=== PATIENT | female | born 1960 | race Caucasian/White ===

== ENCOUNTER 2020-07-13 13:27 | Emergency (ER) | payer BC ==
[~2020-07-13] VITALS: Ht 162.6 cm; Wt 70.3 kg
[2020-07-13] MEDS ORDERED: KETOROLAC TROMETHAMINE 60 MG/2 ML VIAL IM NR (13:45)
--- NOTE | 2020-07-13 14:20 | Diagnostic Imaging Report ---
Exam: SHOULDER LEFT COMPLETE, HUMERUS LEFT 2+VIEWS - 2 views Left humerus radiographs-3 views History: Arm pain, fall Comparison: None. Findings: Acute comminuted fracture of the proximal left humeral metaphysis with involvement of the greater tuberosity. No malalignment of the left shoulder or left elbow. 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 Regional soft tissue swelling adjacent to fracture. Impression: 1. Acute comminuted fracture of the proximal left humeral metaphysis with involvement of the greater tuberosity. Signed by: Dr. Jay Weinstein M.D. on 07/13/2020 2:17 PM
--- NOTE | 2020-07-13 14:29 | Emergency Department Note ---
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 NO HEAD TRAUMA, NO LOC Historian: Patient Operations Section Manager Required: No Onset (how long ago): minute(s) Location: LEFT MID HUMERUS Quality: PAIN Radiation: Reports non-radiation Severity: moderate Onset quality: sudden Timing of current episode: constant Progression: unchanged Chronicity: new Context: Reports trauma/injury; Denies recent illness Relieving factors: none Exacerbating factors: none Associated symptoms: Reports denies other symptoms Past Medical/Family History Physician Review I have reviewed the patient's past medical and family history. Any updates have been documented here. 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 Other Any Pre-Existing Lines (PICC,: No Review of Systems Review of Systems Constitutional: Reports no symptoms EENTM: Reports no symptoms Cardiovascular: Reports no symptoms Respiratory: Reports no symptoms Gastrointestinal: Reports no symptoms Genitourinary: Reports no symptoms Musculoskeletal: Reports as per HPI Integumentary: Reports no symptoms Neurological: Reports no symptoms Psychological: Reports no symptoms Endocrine: Reports no symptoms Hematological/Lymphatic: Reports no symptoms Physical Exam Related Data Allergies: Coded Allergies: No Known Allergies (Unverified , 07/13/20) Triage Vital Signs Vital Signs Date Time Temp Pulse Resp B/P (MAP) Pulse Ox O2 Delivery O2 Flow Rate FiO2 07/13/20 13:33 98.2 66 18 137/75 100 Room Air Vital signs reviewed: Yes Physical Exam CONSTITUTIONAL Constitutional: Present well-developed, Present well-nourished HENT HENT: Present normocephalic, Present atraumatic, Present oropharynx clear/moist, Present nose normal HENT L/R: Present left ext ear normal, Present right ext ear normal EYES Eyes: Reports PERRL, Reports conjunctivae normal NECK Neck: Present ROM normal, Present supple, Present other (NO TENDERNESS) PULMONARY Pulmonary: Present effort normal, Present breath sounds normal CARDIOVASCULAR Cardiovascular: Present regular rhythm, Present heart sounds normal, Present capillary refill normal, Present normal rate GASTROINTESTINAL Abdominal: Present soft, Present nontender, Present bowel sounds normal GENITOURINARY Genitourinary: Present exam deferred SKIN Skin: Present warm, Present dry MUSCULOSKELETAL Musculoskeletal: Present ROM normal, Present other (TENDERNESS OF LEFT MID- BICEPS, GOOD STRENGTH, DISTAL N/V INTACT); Absent deformity NEUROLOGICAL Neurological: Present alert, Present oriented x 3, Present no gross motor or sensory deficits PSYCHOLOGICAL Psychological: Present mood/affect normal, Present judgement normal Results Imaging Imaging results reviewed: Yes Assessment & Plan Medical Decision Making MDM FALL WITH MID-UPPER ARM PAIN - SEEMS MUSCULAR (WITH NO DEFECT) BUT WILL CHECK XRAYS R/O FX Reassessment Reassessment SLING/SWATH, TORADOL PO, TYL #3, F/U DR MARTINEZ WEDNESDAY (I SPOKE WITH HIM) Assessment & Plan Final Impression: (1) Contusion (2) Proximal humerus fracture (3) Greater tuberosity of humerus fracture Depart Disposition: HOME, SELF-CARE Last Vital Signs Date Time Temp Pulse Resp B/P (MAP) Pulse Ox O2 Delivery O2 Flow Rate FiO2 07/13/20 13:33 98.2 66 18 137/75 100 Room Air Medications in the ED Ketorolac Tromethamine 60 mg ONCE IM Last administered on 07/13/20at 13:53; Admin Dose 60 MG; Start 07/13/20 at 13:45; Stop 07/13/20 at 14:59 SALAZAR HINDS MD Jul 13, 2020 14:29
[2020-07-13] MEDS ORDERED: HYDROCODONE/APAP 7.5MG-325MG 1 EA TAB PO NR (14:45)
[2020-07-13] MEDS ORDERED: ACETAMINOPHEN/CODEINE 300MG - 30MG TAB PO NR (15:00)
== END 2020-07-13 15:07 | disposition home or self-care (01) ==
LOC: ER 13:38
DX: S42.202A Unspecified fracture of upper end of left humerus, initial encounter for closed fracture (principal); W01.0XXA Fall on same level from slipping, tripping and stumbling without subsequent striking against object, initial encounter; Y93.01 Activity, walking, marching and hiking; Y92.512 Supermarket, store or market as the place of occurrence of the external cause
CPT/HCPCS: 73030; 73060; 99283; J1885

== ENCOUNTER → 2020-10-02 | Outpatient (CLI) | payer BC | LOC: EDBD 10:03 → MAMMO 10:03 | DX: Z12.31 Encounter for screening mammogram for malignant neoplasm of breast (principal); Z13.820 Encounter for screening for osteoporosis; Z78.0 Asymptomatic menopausal state; M54.5 Low back pain; R56.9 Unspecified convulsions; M21.379 Foot drop, unspecified foot; W19.XXXA Unspecified fall, initial encounter | CPT/HCPCS: 72148; 77067; 77080; 95812 ==